=== PATIENT | female | born 1980 | race Two or more races ===

== ENCOUNTER 2019-05-16 08:57 | Emergency (ER) | payer SELFPAY ==
[~2019-05-16] VITALS: Ht 160 cm; Wt 74.4 kg
--- NOTE | 2019-05-16 10:13 | PHYS DOC ---
Past Medical History Past Medical History: No Pertinent History Past Surgical History: Cholecystectomy Alcohol Use: None Drug Use: None Adult General Chief Complaint Chief Complaint: ABDOMINAL PAIN HPI HPI Patient is 38-year-old male who presents to the emergency department for evaluation. She states that this morning she developed some generalized abdominal pain, described as a crampy, burning pain in the center of her abdomen. She has had some nausea but no vomiting. She denies any diarrhea. She declines need for pain medication at this time. She had a similar episode of pain about a week ago, which resolved after throwing up and having a bowel movement. She has not had any bloody emesis or stools. She denies any chest pain or shortness of breath, dizziness or lightheadedness. She has had a cholecystectomy. There are no alleviating or exacerbating factors to the patient's symptoms, except as noted above. Review of Systems Review of Systems Constitutional: Denies fever or chills [] Eyes: Denies change in visual acuity, redness, or eye pain [] HENT: Denies nasal congestion or sore throat [] Respiratory: Denies cough or shortness of breath [] Cardiovascular: The patient denies any shortness of breath, chest pain, palpitations, or orthopnea [] GI: No additional information not addressed in HPI [] : Denies dysuria or hematuria. Denies pelvic pain or vaginal discharge. LMP was just under one month ago. [] Musculoskeletal: Denies back pain or joint pain [] Integument: Denies rash or skin lesions [] Neurologic: Denies headache, focal weakness or sensory changes [] Endocrine: Denies polyuria or polydipsia [] All other systems were reviewed and found to be within normal limits, except as documented in this note. Current Medications Current Medications Current Medications Medications (Trade) Dose Ordered Sig/Crystal Start Time Stop Time Status Last Admin Dose Admin Info (CONTRAST GIVEN -- Rx MONITORING) 1 each PRN DAILY PRN 05/16/19 10:45 05/18/19 10:44 Iohexol (Omnipaque 300 Mg/ml) 75 ml 1X ONCE 05/16/19 10:45 05/16/19 10:46 DC 05/16/19 10:47 75 ML Sodium Chloride 1,000 ml @ 1,000 mls/hr Q1H 05/16/19 10:30 05/16/19 11:29 DC 05/16/19 10:14 1,000 MLS/HR Allergies Allergies Allergies Coded Allergies Type Severity Reaction Last Updated Verified No Known Drug Allergies 09/19/14 No Physical Exam Physical Exam PHYSICAL EXAM: CONSTITUTIONAL: Well developed, well nourished HEAD: normocephalic, atraumatic EENT: PERRL, EOMI. Conjunctivae normal color, sclerae non-icteric; moist mucous membranes. NECK: Supple, non-tender; no meningismus. LUNGS: Lungs CTA, breathing even and unlabored. Normal air movement. HEART: Regular rate and rhythm, no murmur CHEST: No deformity; non-tender ABDOMEN: The abdomen is soft, There is very mild diffuse tenderness to palpation of the abdomen, most prominent tenderness to palpation in the right lower quadrant, without rebound or guarding, no masses or bruits. Normal bowel sounds are present. EXTREM: Normal ROM; no deformity, no calf tenderness. Normal pulses palpable in all extremities. There is no pedal edema. SKIN: No rash; no diaphoresis NEURO: Alert; normal speech and cognition; CN's grossly intact; strength grossly intact without focal deficit. BACK: No CVA TTP. Current Patient Data Vital Signs Vital Signs Date Time Temp Pulse Resp B/P (MAP) Pulse Ox O2 Delivery O2 Flow Rate FiO2 05/16/19 10:20 74 18 110/68 (82) 98 Room Air 05/16/19 09:46 97.2 97.2 Lab Values Laboratory Tests Test 05/16/19 09:53 05/16/19 09:57 05/16/19 10:01 Urine Collection Type Void Urine Color Yellow Urine Clarity Clear Urine pH 5.0 Urine Specific [place] 1.025 Urine Protein Negative mg/dL (NEG-TRACE) Urine Glucose (UA) Negative mg/dL (NEG) Urine Ketones (Stick) Negative mg/dL (NEG) Urine Blood Trace (NEG) Urine Nitrite Negative (NEG) Urine Bilirubin Negative (NEG) Urine Urobilinogen Dipstick 0.2 mg/dL (0.2 mg/dL) Urine Leukocyte Esterase Small (NEG) Urine RBC 6-10 /HPF (0-2) Urine WBC 5-10 /HPF (0-4) Urine Squamous Epithelial Cells Few /LPF Urine Bacteria Few /HPF (0-FEW) POC Urine HCG, Qualitative Hcg negative (Negative) White Blood Count 13.2 x10^3/uL (4.0-11.0) H Red Blood Count 4.62 x10^6/uL (3.50-5.40) Hemoglobin 14.1 g/dL (12.0-15.5) Hematocrit 41.2 % (36.0-47.0) Mean Corpuscular Volume 89 fL (79-100) Mean Corpuscular Hemoglobin 31 pg (25-35) Mean Corpuscular Hemoglobin Concent 34 g/dL (31-37) Red Cell Distribution Width 12.8 % (11.5-14.5) Platelet Count 353 x10^3/uL (140-400) Neutrophils (%) (Auto) 86 % (31-73) H Lymphocytes (%) (Auto) 8 % (24-48) L Monocytes (%) (Auto) 4 % (0-9) Eosinophils (%) (Auto) 1 % (0-3) Basophils (%) (Auto) 0 % (0-3) Neutrophils # (Auto) 11.4 x10^3/uL (1.8-7.7) H Lymphocytes # (Auto) 1.1 x10^3/uL (1.0-4.8) Monocytes # (Auto) 0.5 x10^3/uL (0.0-1.1) Eosinophils # (Auto) 0.1 x10^3/uL (0.0-0.7) Basophils # (Auto) 0.0 x10^3/uL (0.0-0.2) Segmented Neutrophils % 85 % (35-66) H Band Neutrophils % 4 % (0-9) Lymphocytes % 8 % (24-48) L Monocytes % 3 % (0-10) Platelet Estimate Adequate (ADEQUATE) Sodium Level 138 mmol/L (136-145) Potassium Level 3.8 mmol/L (3.5-5.1) Chloride Level 104 mmol/L (98-107) Carbon Dioxide Level 23 mmol/L (21-32) Anion Gap 11 (6-14) Blood Urea Nitrogen 11 mg/dL (7-20) Creatinine 0.8 mg/dL (0.6-1.0) Estimated GFR (Cockcroft-Gault) 80.7 BUN/Creatinine Ratio 14 (6-20) Glucose Level 108 mg/dL (70-99) H Calcium Level 8.5 mg/dL (8.5-10.1) Total Bilirubin 0.3 mg/dL (0.2-1.0) Aspartate Amino Transferase (AST) 56 U/L (15-37) H Alanine Aminotransferase (ALT) 52 U/L (14-59) Alkaline Phosphatase 142 U/L (46-116) H Total Protein 8.0 g/dL (6.4-8.2) Albumin 3.6 g/dL (3.4-5.0) Albumin/Globulin Ratio 0.8 (1.0-1.7) L Lipase 286 U/L (73-393) Laboratory Tests 05/16/19 10:01 Laboratory Tests 05/16/19 10:01 EKG EKG [] Radiology/Procedures Radiology/Procedures PROCEDURE: CT ABD PELV W/ IV CONTRST ONLY Examination: CT of the abdomen pelvis with IV contrast HISTORY: History of abdominal pain, nausea COMPARISON: None available TECHNIQUE: Axial CT images of the abdomen pelvis were performed with IV contrast. Coronal and sagittal reformats are performed Exposure: One or more of the following individualized dose reduction techniques were utilized for this examination: 1. Automated exposure control 2. Adjustment of the mA and/or kV according to patient size 3. Use of iterative reconstruction technique FINDINGS: Minimal bibasilar lung atelectasis. No evidence of free air identified in the abdomen. The liver, spleen, adrenals grossly appears unremarkable. Cholecystectomy clips identified. The stomach is mildly distended. Faint questionable fat stranding identified about the head of the pancreas probably motion artifact and less likely pancreatitis. The small bowel demonstrates minimal fluid distended bowel loops in the mid abdomen. The visualized appendix grossly appears unremarkable. Feces and gas noted in the colon. Urinary bladder is mildly distended. Punctate 1 mm calculus right kidney. No evidence of hydronephrosis. Small fat-containing umbilical hernia. No evidence of lytic bony destructive lesion. IMPRESSION: 1. Mild fluid distended small bowel loops identified in the mid abdomen, nonspecific could be mild enteritis or partial small bowel obstruction. 2. Minimal fat stranding identified about the pancreas probably due to motion artifact and less likely pancreatitis. Correlate with lab values. 3. 1 mm calculus right kidney. [] Course & Med Decision Making Course & Med Decision Making Pertinent Labs and Imaging studies reviewed. (See chart for details) [] 12:20 PM: The patient's condition remains stable. She has been reexamined. She still has some mild diffuse tenderness to palpation. Normal bowel sounds are present, I am not highly suspicious she has a bowel obstruction she has had no vomiting. I discussed test results in detail with the patient, she might have a small UTI will be treated for such. I discussed expectant management, the importance of close GI follow-up, and return precautions in detail. Dragon Disclaimer Dragon Disclaimer This electronic medical record was generated, in whole or in part, using a voice recognition dictation system. Departure Departure Impression: Primary Impression: Abdominal pain Disposition: HOME, SELF-CARE Condition: STABLE Referrals: KEN CHEEMA MD Patient Instructions: Abdominal Pain (Nonspecific) Additional Instructions: Return to medical care for any new or worsening symptoms, development of increasing pain, vomiting, fever, bloody diarrhea, or any other new, or concerning symptoms. It is important that you get further outpatient evaluation. Please call gastroenterology, using the information provided, to schedule outpatient follow- up. Scripts Sulfamethoxazole/Trimethoprim (BACTRIM DS TABLET) 1 Each Tablet 1 TAB PO BID, #6 TAB Prov: JESSIE VILCHIS MD 05/16/19 Ondansetron Hcl (ZOFRAN) 4 Mg Tablet 1 TAB PO Q6HRS PRN for NAUSEA/VOMITING, #20 TAB Prov: JESSIE VILCHIS MD 05/16/19 Dicyclomine Hcl (DICYCLOMINE HCL) 20 Mg Tablet 1 TAB PO QID, #20 TAB Prov: JESSIE VILCHIS MD 05/16/19 JESSIE VILCHIS MD May 16, 2019 10:13
[2019-05-16 10:20] VITALS: BP 110/68
[2019-05-16 10:22] LABS: BASO % 0 % (0-3); EOS # 0.1 x10^3/uL (0.0-0.7); EOS % 1 % (0-3); HEMATOCRIT 41.2 % (36.0-47.0); HEMOGLOBIN 14.1 g/dL (12.0-15.5); LYMPH # 1.1 x10^3/uL (1.0-4.8); LYMPH % 8 % (24-48); MEAN CORPUSCULAR HEMOGLOBIN 31 pg (25-35); MEAN CORPUSCULAR HGB CONC 34 g/dL (31-37); MEAN CORPUSCULAR VOLUME 89 fL (79-100); MONO # 0.5 x10^3/uL (0.0-1.1); MONO % 4 % (0-9); NEUT # 11.4 x10^3/uL (1.8-7.7); NEUT % 86 % (31-73); PLATELET COUNT 353 x10^3/uL (140-400); RED BLOOD COUNT 4.62 x10^6/uL (3.50-5.40); RED CELL DISTRIBUTION WIDTH 12.8 % (11.5-14.5); WHITE BLOOD COUNT 13.2 x10^3/uL (4.0-11.0)
[2019-05-16 10:25] LABS: BILIRUBIN,URINE NEGATIVE (NEG); CLARITY,URINE CLEAR; COLOR,URINE YELLOW; NITRITE,URINE NEGATIVE (NEG); PROTEIN,URINE NEGATIVE (NEG-TRACE); UROBILINOGEN,URINE 0.2 mg/dL (0.2 mg/dL)
[2019-05-16] MEDS ORDERED: IV NORMAL SALINE 1000ML BAG 1,000 ML IV SCH (10:30)
[2019-05-16 10:35] LABS: CALCIUM 8.5 mg/dL (8.5-10.1); CREATININE 0.8 mg/dL (0.6-1.0); GFR 80.7; POTASSIUM 3.8 mmol/L (3.5-5.1)
[2019-05-16 10:40] LABS: BACTERIA,URINE FEW /HPF (0-FEW)
[2019-05-16 10:41] LABS: SQUAMOUS EPITHELIAL CELL,UR FEW /LPF
[2019-05-16 10:42] LABS: ALBUMIN 3.6 g/dL (3.4-5.0); ALBUMIN/GLOBULIN RATIO 0.8 (1.0-1.7); TOTAL BILIRUBIN 0.3 mg/dL (0.2-1.0)
[2019-05-16] MEDS ORDERED: CONTRAST GIVEN. MC PRN (10:45)
[2019-05-16] MEDS ORDERED: IOHEXOL 300 MG/ML 100ML VIAL. IV ONE (10:45)
[2019-05-16 11:05] LABS: % BANDS 4 % (0-9); % LYMPHS 8 % (24-48); % MONOS 3 % (0-10); % SEGS 85 % (35-66); PLT ESTIMATE ADEQUATE (ADEQUATE)
--- NOTE | 2019-05-16 11:29 | RAD ---
Examination: CT of the abdomen pelvis with IV contrast HISTORY: History of abdominal pain, nausea COMPARISON: None available TECHNIQUE: Axial CT images of the abdomen pelvis were performed with IV contrast. Coronal and sagittal reformats are performed Exposure: One or more of the following individualized dose reduction techniques were utilized for this examination: 1. Automated exposure control 2. Adjustment of the mA and/or kV according to patient size 3. Use of iterative reconstruction technique FINDINGS: Minimal bibasilar lung atelectasis. No evidence of free air identified in the abdomen. The liver, spleen, adrenals grossly appears unremarkable. Cholecystectomy clips identified. The stomach is mildly distended. Faint questionable fat stranding identified about the head of the pancreas probably motion artifact and less likely pancreatitis. The small bowel demonstrates minimal fluid distended bowel loops in the mid abdomen. The visualized appendix grossly appears unremarkable. Feces and gas noted in the colon. Urinary bladder is mildly distended. Punctate 1 mm calculus right kidney. No evidence of hydronephrosis. Small fat-containing umbilical hernia. No evidence of lytic bony destructive lesion. IMPRESSION: 1. Mild fluid distended small bowel loops identified in the mid abdomen, nonspecific could be mild enteritis or partial small bowel obstruction. 2. Minimal fat stranding identified about the pancreas probably due to motion artifact and less likely pancreatitis. Correlate with lab values. 3. 1 mm calculus right kidney. Electronically signed by: Jamison Hernandez MD (05/16/2019 11:26 AM) [id number]
[2019-05-16] MEDS ORDERED: ONDA4TAB7 PO (12:26)
[2019-05-16] MEDS ORDERED: DICY20TA3 PO (12:26)
[2019-05-16] MEDS ORDERED: SULF1TAB24 PO (12:26)
== END 2019-05-16 12:51 | disposition home or self-care (01) ==
LOC: ER 08:57
DX: R10.84 Generalized abdominal pain (principal); R11.0 Nausea; Z90.49 Acquired absence of other specified parts of digestive tract
CPT/HCPCS: 36415; 74177; 80053; 81001; 81025; 83690; 85007; 85025; 87086; 96360; 99285; J7030; Q9967

== ENCOUNTER 2019-05-16 16:04 | Observation (INO) | payer SELFPAY ==
[~2019-05-16] VITALS: Ht 160 cm; Wt 74.4 kg
[~2019-05-16 16:04] MED LIST: DICY20TA3 PO; ONDA4TAB7 PO; SULF1TAB24 PO
[2019-05-16] MEDS ORDERED: MORPHINE SULFATE 4 MG/ML VIAL. IV ONE (16:30)
[2019-05-16] MEDS ORDERED: FAMOTIDINE 20 MG/2 ML VIAL IVP ONE (16:30)
[2019-05-16] MEDS ORDERED: ONDANSETRON PF 4 MG/2 ML VIAL. IVP ONE (16:30)
[2019-05-16] MEDS ORDERED: DICYCLOMINE 20 MG/2 ML AMPUL. IM ONE (16:30)
[2019-05-16] MEDS ORDERED: LIDO:MAALOX 1:1 20 ML SINGLE DOSE. SWSW ONE (16:30)
[2019-05-16 16:39] LABS: BASO % 0 % (0-3); EOS # 0.1 x10^3/uL (0.0-0.7); EOS % 1 % (0-3); HEMATOCRIT 41.2 % (36.0-47.0); HEMOGLOBIN 14.1 g/dL (12.0-15.5); LYMPH # 1.8 x10^3/uL (1.0-4.8); LYMPH % 16 % (24-48); MEAN CORPUSCULAR HEMOGLOBIN 30 pg (25-35); MEAN CORPUSCULAR HGB CONC 34 g/dL (31-37); MEAN CORPUSCULAR VOLUME 88 fL (79-100); MONO # 0.5 x10^3/uL (0.0-1.1); MONO % 5 % (0-9); NEUT % 79 % (31-73); PLATELET COUNT 335 x10^3/uL (140-400); RED BLOOD COUNT 4.67 x10^6/uL (3.50-5.40); WHITE BLOOD COUNT 11.5 x10^3/uL (4.0-11.0)
[2019-05-16 16:42] LABS: CREATININE 0.7 mg/dL (0.6-1.0); GFR 94.2; POTASSIUM 3.6 mmol/L (3.5-5.1)
--- NOTE | 2019-05-16 16:42 | PHYS DOC ---
Past Medical History Past Medical History: No Pertinent History Past Surgical History: Cholecystectomy Alcohol Use: None Drug Use: None Adult General Chief Complaint Chief Complaint: ABDOMINAL PAIN HPI HPI Patient is a 38-year-old female, who I saw earlier in the day, secondary to abdominal pain, which has resolved by the time she left the emergency but. Labs, urine, and imaging tests have been performed and were reviewed, as was her note. The patient returned home, had recurrence of her abdominal pain and vomited once, her emesis was mostly clear liquid according to her . She has not had any fevers. She presents to the emergency department for further evaluation, double over in pain. The pain is mostly in her central and upper abdomen. There are no alleviating or exacerbating factors to her symptoms otherwise. Review of Systems Review of Systems Constitutional: Denies fever or chills [] Eyes: Denies change in visual acuity, redness, or eye pain [] HENT: Denies nasal congestion or sore throat [] Respiratory: Denies cough or shortness of breath [] Cardiovascular:The patient denies any shortness of breath, chest pain, palpitations, or orthopnea[] GI: No additional information not addressed in HPI [] : Denies dysuria or hematuria [] Musculoskeletal: Denies back pain or joint pain [] Integument: Denies rash or skin lesions [] Neurologic: Denies headache, focal weakness or sensory changes [] Endocrine: Denies polyuria or polydipsia [] All other systems were reviewed and found to be within normal limits, except as documented in this note. Current Medications Current Medications Current Medications Medications (Trade) Dose Ordered Sig/Crystal Start Time Stop Time Status Last Admin Dose Admin Dicyclomine HCl (Bentyl) 20 mg 1X ONCE 05/16/19 16:30 05/16/19 16:31 DC 05/16/19 16:37 20 MG Famotidine (Pepcid Vial) 20 mg 1X ONCE 05/16/19 16:30 05/16/19 16:31 DC 05/16/19 16:36 20 MG Morphine Sulfate (Morphine Sulfate) 4 mg 1X ONCE 05/16/19 16:30 05/16/19 16:31 DC 05/16/19 16:36 4 MG Multi-Ingredient Mouthwash/Gargle (Gi Cocktail) 20 ml 1X ONCE 11/4/19 16:30 05/16/19 16:31 DC 05/16/19 16:36 20 ML Ondansetron HCl (Zofran) 4 mg 1X ONCE 05/16/19 16:30 05/16/19 16:31 DC 05/16/19 16:36 4 MG Allergies Allergies Allergies Coded Allergies Type Severity Reaction Last Updated Verified No Known Drug Allergies 09/19/14 No Physical Exam Physical Exam PHYSICAL EXAM: CONSTITUTIONAL: Well developed, well nourished HEAD: normocephalic, atraumatic EENT: PERRL, EOMI. Conjunctivae normal color, sclerae non-icteric; moist mucous membranes. NECK: Supple, non-tender; no meningismus. LUNGS: Lungs CTA, breathing even and unlabored. Normal air movement. HEART: Regular rate and rhythm, no murmur CHEST: No deformity; non-tender ABDOMEN: The abdomen is soft, there is mild diffuse tenderness to palpation in the epigastric abdomen, the remainder the abdomen is relatively soft and non- tender, no masses or bruits. Normal bowel sounds are present. EXTREM: Normal ROM; no deformity, no calf tenderness. Normal pulses palpable in all extremities. There is no pedal edema. SKIN: No rash; no diaphoresis NEURO: Alert; normal speech and cognition; CN's grossly intact; strength grossly intact without focal deficit. BACK: No CVA TTP. PSYCHIATRIC: The patient exhibits a moderately anxious affect, related to her pain. Current Patient Data Vital Signs Vital Signs Date Time Temp Pulse Resp B/P (MAP) Pulse Ox O2 Delivery O2 Flow Rate FiO2 05/16/19 16:36 20 100 Room Air 05/16/19 16:13 98.4 83 148/74 (98) 98.4 Lab Values Laboratory Tests Test 05/16/19 16:20 White Blood Count 11.5 x10^3/uL (4.0-11.0) H Red Blood Count 4.67 x10^6/uL (3.50-5.40) Hemoglobin 14.1 g/dL (12.0-15.5) Hematocrit 41.2 % (36.0-47.0) Mean Corpuscular Volume 88 fL (79-100) Mean Corpuscular Hemoglobin 30 pg (25-35) Mean Corpuscular Hemoglobin Concent 34 g/dL (31-37) Red Cell Distribution Width 13.0 % (11.5-14.5) Platelet Count 335 x10^3/uL (140-400) Neutrophils (%) (Auto) 79 % (31-73) H Lymphocytes (%) (Auto) 16 % (24-48) L Monocytes (%) (Auto) 5 % (0-9) Eosinophils (%) (Auto) 1 % (0-3) Basophils (%) (Auto) 0 % (0-3) Neutrophils # (Auto) 9.0 x10^3/uL (1.8-7.7) H Lymphocytes # (Auto) 1.8 x10^3/uL (1.0-4.8) Monocytes # (Auto) 0.5 x10^3/uL (0.0-1.1) Eosinophils # (Auto) 0.1 x10^3/uL (0.0-0.7) Basophils # (Auto) 0.0 x10^3/uL (0.0-0.2) Sodium Level 141 mmol/L (136-145) Potassium Level 3.6 mmol/L (3.5-5.1) Chloride Level 105 mmol/L (98-107) Carbon Dioxide Level 24 mmol/L (21-32) Anion Gap 12 (6-14) Blood Urea Nitrogen 8 mg/dL (7-20) Creatinine 0.7 mg/dL (0.6-1.0) Estimated GFR (Cockcroft-Gault) 94.2 BUN/Creatinine Ratio 11 (6-20) Glucose Level 117 mg/dL (70-99) H Calcium Level 9.0 mg/dL (8.5-10.1) Total Bilirubin 0.5 mg/dL (0.2-1.0) Aspartate Amino Transferase (AST) 76 U/L (15-37) H Alanine Aminotransferase (ALT) 69 U/L (14-59) H Alkaline Phosphatase 161 U/L (46-116) H Total Protein 8.5 g/dL (6.4-8.2) H Albumin 3.8 g/dL (3.4-5.0) Albumin/Globulin Ratio 0.8 (1.0-1.7) L Lipase 245 U/L (73-393) Laboratory Tests 05/16/19 16:20 Laboratory Tests 05/16/19 16:20 EKG EKG [] Radiology/Procedures Radiology/Procedures [] Course & Med Decision Making Course & Med Decision Making Pertinent Labs and Imaging studies reviewed. (See chart for details) [] 4:40 PM: Patient condition remains stable. She'll be given IV fluids, medication to manage her symptoms. The exact etiology of her symptoms is unclear, although cramping related to an enteritis is considered a possibility, as is gastritis. Due to the severe recurrence of her pain, labs will be rechecked, she'll be admitted to the hospital under the care of Dr. saini, who graciously accepted her for further evaluation and monitoring. LFTs are noted to be somewhat elevated, of uncertain etiology. Bilirubin is normal. Biliary obstruction is not highly suspected, but further monitoring and repeat lab values should guide further imaging at this time. I do not think repeat CT scanner even ultrasound at this point is emergently warranted. Dragon Disclaimer Dragon Disclaimer This electronic medical record was generated, in whole or in part, using a voice recognition dictation system. Departure Departure Impression: Primary Impression: Abdominal pain Disposition: ADMITTED INPATIENT Admitting Physician: EARNEST Condition: STABLE Referrals: NO PCP (PCP) JESSIE VILCHIS MD May 16, 2019 16:42
[2019-05-16 16:48] LABS: ALBUMIN 3.8 g/dL (3.4-5.0); ALBUMIN/GLOBULIN RATIO 0.8 (1.0-1.7); TOTAL BILIRUBIN 0.5 mg/dL (0.2-1.0); TOTAL PROTEIN 8.5 g/dL (6.4-8.2)
[2019-05-16 17:35] LABS: BARBITURATES NEG (NEG); BENZODIAZEPINES NEG (NEG); CANNABINOIDS NEG (NEG); COCAINE NEG (NEG); METHADONE NEG (NEG); OPIATES POS (NEG); PHENCYCLIDINE NEG (NEG)
[2019-05-16 17:37] LABS: AMPHETAMINE/METHAMPHETAMINE NEG (NEG)
[2019-05-16 19:00] VITALS: BP 108/67
[2019-05-16] MEDS ORDERED: ONDANSETRON PF 4 MG/2 ML VIAL. IVP PRN (19:15)
[2019-05-16] MEDS: IV NORMAL SALINE 1000ML BAG 1,000 ML IV SCH (19:28)
[2019-05-16] MEDS ORDERED: diphenhydrAMINE HCL 25 MG CAPSULE PO PRN (21:30)
[2019-05-16] MEDS ORDERED: MORPHINE SULFATE 4 MG/ML VIAL. IV PRN (21:30)
--- NOTE | 2019-05-16 21:33 | PDOC1 ---
History and Physical Date of Admission Date of Admission DATE: 05/16/19 TIME: 21:28 History of Present Illness History of Present Illness Ms. Simeon, is a 38-year-old female, admit from ER for abd pain, nausea, with vomiting. she had been to the ER twice today, symptoms had imrpovd with emds, but then had worsened again. she has been unable to eat, but now again feels better and would like to try sprite. earlier, her emesis was mostly clear liquid according to her . NO fevers. pain was 9/10, she was unable to stand upright due to pain Past Medical History Cardiovascular: No pertinent hx Pulmonary: No pertinent hx GI: No pertinent hx Heme/Onc: No pertinent hx Family History Family History: Diabetes Social History Smoke: No ALCOHOL: none Drugs: None Current Problem List Problem List Problems Medical Problems: (1) Abdominal pain Status: Acute Current Medications Current Medications Current Medications Morphine Sulfate (Morphine Sulfate) 4 mg 1X ONCE IV Last administered on 05/16/19at 16:36; Start 05/16/19 at 16:30; Stop 05/16/19 at 16:31; Status DC Dicyclomine HCl (Bentyl) 20 mg 1X ONCE IM Last administered on 05/16/19at 16:37; Start 05/16/19 at 16:30; Stop 05/16/19 at 16:31; Status DC Famotidine (Pepcid Vial) 20 mg 1X ONCE IVP Last administered on 05/16/19at 16:36; Start 05/16/19 at 16:30; Stop 05/16/19 at 16:31; Status DC Multi-Ingredient Mouthwash/Gargle (Gi Cocktail) 20 ml 1X ONCE SWSW Last administered on 05/16/19at 16:36; Start 05/16/19 at 16:30; Stop 05/16/19 at 16:31; Status DC Ondansetron HCl (Zofran) 4 mg 1X ONCE IVP Last administered on 05/16/19at 16:36; Start 05/16/19 at 16:30; Stop 05/16/19 at 16:31; Status DC Sodium Chloride 1,000 ml @ 100 mls/hr Q10H IV Last administered on 05/16/19at 19:28; Start 05/16/19 at 19:15 Ondansetron HCl (Zofran) 8 mg PRN Q8HRS PRN IVP NAUSEA/VOMITING; Start 05/16/19 at 19:15 Active Scripts Active Bactrim Ds Tablet (Sulfamethoxazole/Trimethoprim) 1 Each Tablet 1 Tab PO BID Zofran (Ondansetron Hcl) 4 Mg Tablet 1 Tab PO Q6HRS PRN Dicyclomine Hcl 20 Mg Tablet 1 Tab PO QID Allergies Allergies: Coded Allergies: No Known Drug Allergies (Unverified , 09/19/14) ROS General: YES: Fatigue, Appetite; No: Chills, Night Sweats, Malaise, Other PSYCHOLOGICAL ROS: YES: Sleep disturbances; No: Anxiety, Behavioral Disorder, Concentration difficultie, Decreased libido, Depression, Disorientation, Hallucinations, Hostility, Irritablity, Memory difficulties, Mood Swings, Obsessive thoughts, Other Eyes: No Blurry vision, No Decreased vision, No Double vision, No Dry eyes, No Excessive tearing, No Eye Pain, No Itchy Eyes, No Loss of vision, No P hotophobia, No Scotomata, No Uses contacts, No Uses glasses, No Other HEENT: No: Heacaches, Visual Changes, Hearing change, Nasal congestion, Nasal discharge, Oral lesions, Sinus pain, Sore Throat, Epistaxis, Sneezing, Snoring, Tinnitus, Vertigo, Vocal changes, Other Respiratory: No: Cough, Hemoptysis, Orthopnea, Pleuritic Pain, Shortness of breath, SOB with excertion, Sputum Changes, Stridor, Tachypnea, Wheezing, Other Cardiovascular: No Chest Pain, No Palpitations, No Orthopnea, No Paroxysmal Noc. Dyspnea, No Edema, No Lt Headedness, No Other Gastrointestinal: Yes Nausea, Yes Abdominal Pain Musculoskeletal: No Gait Disturbance, No Joint Pain, No Joint Stiffness, No Joint Swelling, No Muscle Pain, No Muscular Weakness, No Pain In:, No Swelling In:, No Other Neurological: No Behavorial Changes, No Bowel/Bladder ControlChng, No Confusion, No Dizziness, No Gait Disturbance, No Headaches, No Impaired Coord/balance, No Memory Loss, No Numbness/Tingling, No Seizures, No Speech Problems, No Tremors, No Visual Changes, No Weakness, No Other Skin: No Dry Skin, No Eczema, No Hair Changes, No Lumps, No Mole Changes, No Mottling, No Nail Changes, No Pruritus, No Rash, No Skin Lesion Changes, No Other, No Acne Physical Exam General: Alert, Oriented X3 HEENT: Atraumatic, PERRLA Lungs: Clear to auscultation Abdomen: Soft (tender, sounds normla) Extremities: Normal pulses Skin: No rashes, No significant lesion Neuro: Normal tone, Cranial nerves 3-12 NL Psych/Mental Status: Mood NL Vitals Vitals Vital Signs Date Time Temp Pulse Resp B/P (MAP) Pulse Ox O2 Delivery O2 Flow Rate FiO2 05/16/19 19:43 Room Air 05/16/19 17:11 70 18 113/65 (81) 100 05/16/19 16:13 98.4 98.4 Labs Labs Laboratory Tests Test 05/16/19 16:20 05/16/19 17:00 White Blood Count 11.5 x10^3/uL (4.0-11.0) Red Blood Count 4.67 x10^6/uL (3.50-5.40) Hemoglobin 14.1 g/dL (12.0-15.5) Hematocrit 41.2 % (36.0-47.0) Mean Corpuscular Volume 88 fL (79-100) Mean Corpuscular Hemoglobin 30 pg (25-35) Mean Corpuscular Hemoglobin Concent 34 g/dL (31-37) Red Cell Distribution Width 13.0 % (11.5-14.5) Platelet Count 335 x10^3/uL (140-400) Neutrophils (%) (Auto) 79 % (31-73) Lymphocytes (%) (Auto) 16 % (24-48) Monocytes (%) (Auto) 5 % (0-9) Eosinophils (%) (Auto) 1 % (0-3) Basophils (%) (Auto) 0 % (0-3) Neutrophils # (Auto) 9.0 x10^3/uL (1.8-7.7) Lymphocytes # (Auto) 1.8 x10^3/uL (1.0-4.8) Monocytes # (Auto) 0.5 x10^3/uL (0.0-1.1) Eosinophils # (Auto) 0.1 x10^3/uL (0.0-0.7) Basophils # (Auto) 0.0 x10^3/uL (0.0-0.2) Sodium Level 141 mmol/L (136-145) Potassium Level 3.6 mmol/L (3.5-5.1) Chloride Level 105 mmol/L (98-107) Carbon Dioxide Level 24 mmol/L (21-32) Anion Gap 12 (6-14) Blood Urea Nitrogen 8 mg/dL (7-20) Creatinine 0.7 mg/dL (0.6-1.0) Estimated GFR (Cockcroft-Gault) 94.2 BUN/Creatinine Ratio 11 (6-20) Glucose Level 117 mg/dL (70-99) Calcium Level 9.0 mg/dL (8.5-10.1) Total Bilirubin 0.5 mg/dL (0.2-1.0) Aspartate Amino Transf (AST/SGOT) 76 U/L (15-37) Alanine Aminotransferase (ALT/SGPT) 69 U/L (14-59) Alkaline Phosphatase 161 U/L (46-116) Total Protein 8.5 g/dL (6.4-8.2) Albumin 3.8 g/dL (3.4-5.0) Albumin/Globulin Ratio 0.8 (1.0-1.7) Lipase 245 U/L (73-393) Urine Opiates Screen Pos (NEG) Urine Methadone Screen Neg (NEG) Urine Barbiturates Neg (NEG) Urine Phencyclidine Screen Neg (NEG) Urine Amphetamine/Methamphetamine Neg (NEG) Urine Benzodiazepines Screen Neg (NEG) Urine Cocaine Screen Neg (NEG) Urine Cannabinoids Screen Neg (NEG) Urine Ethyl Alcohol Neg (NEG) Laboratory Tests Test 05/16/19 16:20 05/16/19 17:00 White Blood Count 11.5 x10^3/uL (4.0-11.0) Red Blood Count 4.67 x10^6/uL (3.50-5.40) Hemoglobin 14.1 g/dL (12.0-15.5) Hematocrit 41.2 % (36.0-47.0) Mean Corpuscular Volume 88 fL (79-100) Mean Corpuscular Hemoglobin 30 pg (25-35) Mean Corpuscular Hemoglobin Concent 34 g/dL (31-37) Red Cell Distribution Width 13.0 % (11.5-14.5) Platelet Count 335 x10^3/uL (140-400) Neutrophils (%) (Auto) 79 % (31-73) Lymphocytes (%) (Auto) 16 % (24-48) Monocytes (%) (Auto) 5 % (0-9) Eosinophils (%) (Auto) 1 % (0-3) Basophils (%) (Auto) 0 % (0-3) Neutrophils # (Auto) 9.0 x10^3/uL (1.8-7.7) Lymphocytes # (Auto) 1.8 x10^3/uL (1.0-4.8) Monocytes # (Auto) 0.5 x10^3/uL (0.0-1.1) Eosinophils # (Auto) 0.1 x10^3/uL (0.0-0.7) Basophils # (Auto) 0.0 x10^3/uL (0.0-0.2) Sodium Level 141 mmol/L (136-145) Potassium Level 3.6 mmol/L (3.5-5.1) Chloride Level 105 mmol/L (98-107) Carbon Dioxide Level 24 mmol/L (21-32) Anion Gap 12 (6-14) Blood Urea Nitrogen 8 mg/dL (7-20) Creatinine 0.7 mg/dL (0.6-1.0) Estimated GFR (Cockcroft-Gault) 94.2 BUN/Creatinine Ratio 11 (6-20) Glucose Level 117 mg/dL (70-99) Calcium Level 9.0 mg/dL (8.5-10.1) Total Bilirubin 0.5 mg/dL (0.2-1.0) Aspartate Amino Transf (AST/SGOT) 76 U/L (15-37) Alanine Aminotransferase (ALT/SGPT) 69 U/L (14-59) Alkaline Phosphatase 161 U/L (46-116) Total Protein 8.5 g/dL (6.4-8.2) Albumin 3.8 g/dL (3.4-5.0) Albumin/Globulin Ratio 0.8 (1.0-1.7) Lipase 245 U/L (73-393) Urine Opiates Screen Pos (NEG) Urine Methadone Screen Neg (NEG) Urine Barbiturates Neg (NEG) Urine Phencyclidine Screen Neg (NEG) Urine Amphetamine/Methamphetamine Neg (NEG) Urine Benzodiazepines Screen Neg (NEG) Urine Cocaine Screen Neg (NEG) Urine Cannabinoids Screen Neg (NEG) Urine Ethyl Alcohol Neg (NEG) VTE Prophylaxis Ordered VTE Prophylaxis Devices: No VTE Pharmacological Prophylaxi: No Assessment/Plan Assessment/Plan acute abd pain with nausea viral enteritis admit symptom control, clear liquids, DC when able to advance diet DAYNE SOFIA MD May 16, 2019 21:33
[2019-05-16 23:00] VITALS: BP 112/69
[2019-05-17 03:00] VITALS: BP 112/76
[2019-05-17] MEDS: IV NORMAL SALINE 1000ML BAG 1,000 ML IV SCH ×2 (04:55→14:38)
[2019-05-17 06:34] LABS: BASO % 0 % (0-3); EOS # 0.3 x10^3/uL (0.0-0.7); EOS % 4 % (0-3); HEMATOCRIT 37.5 % (36.0-47.0); HEMOGLOBIN 12.9 g/dL (12.0-15.5); LYMPH # 1.9 x10^3/uL (1.0-4.8); LYMPH % 26 % (24-48); MEAN CORPUSCULAR HEMOGLOBIN 31 pg (25-35); MEAN CORPUSCULAR HGB CONC 34 g/dL (31-37); MEAN CORPUSCULAR VOLUME 90 fL (79-100); MONO # 0.5 x10^3/uL (0.0-1.1); MONO % 7 % (0-9); NEUT # 4.5 x10^3/uL (1.8-7.7); NEUT % 63 % (31-73); PLATELET COUNT 302 x10^3/uL (140-400); RED BLOOD COUNT 4.19 x10^6/uL (3.50-5.40); RED CELL DISTRIBUTION WIDTH 13.3 % (11.5-14.5); WHITE BLOOD COUNT 7.2 x10^3/uL (4.0-11.0)
[2019-05-17 06:55] LABS: ALBUMIN/GLOBULIN RATIO 0.7 (1.0-1.7); CALCIUM 8.1 mg/dL (8.5-10.1); CREATININE 0.8 mg/dL (0.6-1.0); GFR 80.7; POTASSIUM 3.8 mmol/L (3.5-5.1); TOTAL BILIRUBIN 0.4 mg/dL (0.2-1.0); TOTAL PROTEIN 7.1 g/dL (6.4-8.2)
[2019-05-17 07:00] VITALS: BP 108/57
[2019-05-17] MEDS ORDERED: LIDO:MAALOX 1:1 20 ML SINGLE DOSE. PO PRN (08:45)
[2019-05-17] MEDS ORDERED: oxyCODONE/APAP 5/325 1 TAB TABLET PO PRN (08:45)
[2019-05-17] MEDS ORDERED: PROCHLORPERAZINE 10 MG/2 ML VIAL. IV PRN (08:45)
[2019-05-17] MEDS ORDERED: LOPERAMIDE 2 MG CAPSULE PO PRN (08:45)
[2019-05-17] MEDS ORDERED: NON FORMULARY ITEM (Dicyclomine Hcl 1 TAB) PO SCH (09:00)
[2019-05-17 11:00] VITALS: BP 103/69
--- NOTE | 2019-05-17 11:38 | PDOC ---
PROGRESS NOTES Chief Complaint Chief Complaint AGE vs partial SBO TRAnsaminitis mild History of Present Illness History of Present Illness STill some abd pain NO emesis though ATe only liquid diet as what was ordered Was sick x 7 days, 2 er visits: dcd on PO zofran, bentyl and bactrim with no improvement as relayed by to me at bedside PT is a housewife, minimal slovenian, denies sick contacts with toddlers with AGE sxs LEukocytosis resolved with PO flagyl, i added IV cipro PLAN: COnsult GI - i attempted to discuss dc, she looked uncomfortable re the idea LFts are elliot elevated LIquid diet for now till GI sees I provided copy of the CT to I added supportive gI meds Vitals Vitals Vital Signs Date Time Temp Pulse Resp B/P (MAP) Pulse Ox O2 Delivery O2 Flow Rate FiO2 05/17/19 11:00 97.7 72 16 103/69 (80) 98 Room Air 97.7 Physical Exam General: Alert, Oriented X3 Abdomen: Soft (tender, sounds normla) Extremities: Normal pulses Skin: No rashes, No significant lesion Labs LABS Laboratory Tests Test 05/16/19 16:20 05/16/19 17:00 05/17/19 05:30 White Blood Count 11.5 x10^3/uL (4.0-11.0) 7.2 x10^3/uL (4.0-11.0) Red Blood Count 4.67 x10^6/uL (3.50-5.40) 4.19 x10^6/uL (3.50-5.40) Hemoglobin 14.1 g/dL (12.0-15.5) 12.9 g/dL (12.0-15.5) Hematocrit 41.2 % (36.0-47.0) 37.5 % (36.0-47.0) Mean Corpuscular Volume 88 fL (79-100) 90 fL (79-100) Mean Corpuscular Hemoglobin 30 pg (25-35) 31 pg (25-35) Mean Corpuscular Hemoglobin Concent 34 g/dL (31-37) 34 g/dL (31-37) Red Cell Distribution Width 13.0 % (11.5-14.5) 13.3 % (11.5-14.5) Platelet Count 335 x10^3/uL (140-400) 302 x10^3/uL (140-400) Neutrophils (%) (Auto) 79 % (31-73) 63 % (31-73) Lymphocytes (%) (Auto) 16 % (24-48) 26 % (24-48) Monocytes (%) (Auto) 5 % (0-9) 7 % (0-9) Eosinophils (%) (Auto) 1 % (0-3) 4 % (0-3) Basophils (%) (Auto) 0 % (0-3) 0 % (0-3) Neutrophils # (Auto) 9.0 x10^3/uL (1.8-7.7) 4.5 x10^3/uL (1.8-7.7) Lymphocytes # (Auto) 1.8 x10^3/uL (1.0-4.8) 1.9 x10^3/uL (1.0-4.8) Monocytes # (Auto) 0.5 x10^3/uL (0.0-1.1) 0.5 x10^3/uL (0.0-1.1) Eosinophils # (Auto) 0.1 x10^3/uL (0.0-0.7) 0.3 x10^3/uL (0.0-0.7) Basophils # (Auto) 0.0 x10^3/uL (0.0-0.2) 0.0 x10^3/uL (0.0-0.2) Sodium Level 141 mmol/L (136-145) 143 mmol/L (136-145) Potassium Level 3.6 mmol/L (3.5-5.1) 3.8 mmol/L (3.5-5.1) Chloride Level 105 mmol/L (98-107) 109 mmol/L (98-107) Carbon Dioxide Level 24 mmol/L (21-32) 26 mmol/L (21-32) Anion Gap 12 (6-14) 8 (6-14) Blood Urea Nitrogen 8 mg/dL (7-20) 7 mg/dL (7-20) Creatinine 0.7 mg/dL (0.6-1.0) 0.8 mg/dL (0.6-1.0) Estimated GFR (Cockcroft-Gault) 94.2 80.7 BUN/Creatinine Ratio 11 (6-20) 9 (6-20) Glucose Level 117 mg/dL (70-99) 91 mg/dL (70-99) Calcium Level 9.0 mg/dL (8.5-10.1) 8.1 mg/dL (8.5-10.1) Total Bilirubin 0.5 mg/dL (0.2-1.0) 0.4 mg/dL (0.2-1.0) Aspartate Amino Transf (AST/SGOT) 76 U/L (15-37) 64 U/L (15-37) Alanine Aminotransferase (ALT/SGPT) 69 U/L (14-59) 86 U/L (14-59) Alkaline Phosphatase 161 U/L (46-116) 143 U/L (46-116) Total Protein 8.5 g/dL (6.4-8.2) 7.1 g/dL (6.4-8.2) Albumin 3.8 g/dL (3.4-5.0) 3.0 g/dL (3.4-5.0) Albumin/Globulin Ratio 0.8 (1.0-1.7) 0.7 (1.0-1.7) Lipase 245 U/L (73-393) Urine Opiates Screen Pos (NEG) Urine Methadone Screen Neg (NEG) Urine Barbiturates Neg (NEG) Urine Phencyclidine Screen Neg (NEG) Urine Amphetamine/Methamphetamine Neg (NEG) Urine Benzodiazepines Screen Neg (NEG) Urine Cocaine Screen Neg (NEG) Urine Cannabinoids Screen Neg (NEG) Urine Ethyl Alcohol Neg (NEG) Review of Systems Review of Systems abd pain, no emesis, no fevers, no diarrhea, no cp, all else 14 pt neg Assessment and Plan Assessmemt and Plan Problems Medical Problems: (1) Abdominal pain Status: Acute (2) Nausea Status: Acute (3) Viral enteritis Status: Acute Comment Review of Relevant I have reviewed the following items victorina (where applicable) has been applied. Labs Laboratory Tests Test 05/16/19 16:20 05/16/19 17:00 05/17/19 05:30 White Blood Count 11.5 x10^3/uL (4.0-11.0) 7.2 x10^3/uL (4.0-11.0) Red Blood Count 4.67 x10^6/uL (3.50-5.40) 4.19 x10^6/uL (3.50-5.40) Hemoglobin 14.1 g/dL (12.0-15.5) 12.9 g/dL (12.0-15.5) Hematocrit 41.2 % (36.0-47.0) 37.5 % (36.0-47.0) Mean Corpuscular Volume 88 fL (79-100) 90 fL (79-100) Mean Corpuscular Hemoglobin 30 pg (25-35) 31 pg (25-35) Mean Corpuscular Hemoglobin Concent 34 g/dL (31-37) 34 g/dL (31-37) Red Cell Distribution Width 13.0 % (11.5-14.5) 13.3 % (11.5-14.5) Platelet Count 335 x10^3/uL (140-400) 302 x10^3/uL (140-400) Neutrophils (%) (Auto) 79 % (31-73) 63 % (31-73) Lymphocytes (%) (Auto) 16 % (24-48) 26 % (24-48) Monocytes (%) (Auto) 5 % (0-9) 7 % (0-9) Eosinophils (%) (Auto) 1 % (0-3) 4 % (0-3) Basophils (%) (Auto) 0 % (0-3) 0 % (0-3) Neutrophils # (Auto) 9.0 x10^3/uL (1.8-7.7) 4.5 x10^3/uL (1.8-7.7) Lymphocytes # (Auto) 1.8 x10^3/uL (1.0-4.8) 1.9 x10^3/uL (1.0-4.8) Monocytes # (Auto) 0.5 x10^3/uL (0.0-1.1) 0.5 x10^3/uL (0.0-1.1) Eosinophils # (Auto) 0.1 x10^3/uL (0.0-0.7) 0.3 x10^3/uL (0.0-0.7) Basophils # (Auto) 0.0 x10^3/uL (0.0-0.2) 0.0 x10^3/uL (0.0-0.2) Sodium Level 141 mmol/L (136-145) 143 mmol/L (136-145) Potassium Level 3.6 mmol/L (3.5-5.1) 3.8 mmol/L (3.5-5.1) Chloride Level 105 mmol/L (98-107) 109 mmol/L (98-107) Carbon Dioxide Level 24 mmol/L (21-32) 26 mmol/L (21-32) Anion Gap 12 (6-14) 8 (6-14) Blood Urea Nitrogen 8 mg/dL (7-20) 7 mg/dL (7-20) Creatinine 0.7 mg/dL (0.6-1.0) 0.8 mg/dL (0.6-1.0) Estimated GFR (Cockcroft-Gault) 94.2 80.7 BUN/Creatinine Ratio 11 (6-20) 9 (6-20) Glucose Level 117 mg/dL (70-99) 91 mg/dL (70-99) Calcium Level 9.0 mg/dL (8.5-10.1) 8.1 mg/dL (8.5-10.1) Total Bilirubin 0.5 mg/dL (0.2-1.0) 0.4 mg/dL (0.2-1.0) Aspartate Amino Transf (AST/SGOT) 76 U/L (15-37) 64 U/L (15-37) Alanine Aminotransferase (ALT/SGPT) 69 U/L (14-59) 86 U/L (14-59) Alkaline Phosphatase 161 U/L (46-116) 143 U/L (46-116) Total Protein 8.5 g/dL (6.4-8.2) 7.1 g/dL (6.4-8.2) Albumin 3.8 g/dL (3.4-5.0) 3.0 g/dL (3.4-5.0) Albumin/Globulin Ratio 0.8 (1.0-1.7) 0.7 (1.0-1.7) Lipase 245 U/L (73-393) Urine Opiates Screen Pos (NEG) Urine Methadone Screen Neg (NEG) Urine Barbiturates Neg (NEG) Urine Phencyclidine Screen Neg (NEG) Urine Amphetamine/Methamphetamine Neg (NEG) Urine Benzodiazepines Screen Neg (NEG) Urine Cocaine Screen Neg (NEG) Urine Cannabinoids Screen Neg (NEG) Urine Ethyl Alcohol Neg (NEG) Laboratory Tests Test 05/16/19 16:20 05/16/19 17:00 05/17/19 05:30 White Blood Count 11.5 x10^3/uL (4.0-11.0) 7.2 x10^3/uL (4.0-11.0) Red Blood Count 4.67 x10^6/uL (3.50-5.40) 4.19 x10^6/uL (3.50-5.40) Hemoglobin 14.1 g/dL (12.0-15.5) 12.9 g/dL (12.0-15.5) Hematocrit 41.2 % (36.0-47.0) 37.5 % (36.0-47.0) Mean Corpuscular Volume 88 fL (79-100) 90 fL (79-100) Mean Corpuscular Hemoglobin 30 pg (25-35) 31 pg (25-35) Mean Corpuscular Hemoglobin Concent 34 g/dL (31-37) 34 g/dL (31-37) Red Cell Distribution Width 13.0 % (11.5-14.5) 13.3 % (11.5-14.5) Platelet Count 335 x10^3/uL (140-400) 302 x10^3/uL (140-400) Neutrophils (%) (Auto) 79 % (31-73) 63 % (31-73) Lymphocytes (%) (Auto) 16 % (24-48) 26 % (24-48) Monocytes (%) (Auto) 5 % (0-9) 7 % (0-9) Eosinophils (%) (Auto) 1 % (0-3) 4 % (0-3) Basophils (%) (Auto) 0 % (0-3) 0 % (0-3) Neutrophils # (Auto) 9.0 x10^3/uL (1.8-7.7) 4.5 x10^3/uL (1.8-7.7) Lymphocytes # (Auto) 1.8 x10^3/uL (1.0-4.8) 1.9 x10^3/uL (1.0-4.8) Monocytes # (Auto) 0.5 x10^3/uL (0.0-1.1) 0.5 x10^3/uL (0.0-1.1) Eosinophils # (Auto) 0.1 x10^3/uL (0.0-0.7) 0.3 x10^3/uL (0.0-0.7) Basophils # (Auto) 0.0 x10^3/uL (0.0-0.2) 0.0 x10^3/uL (0.0-0.2) Sodium Level 141 mmol/L (136-145) 143 mmol/L (136-145) Potassium Level 3.6 mmol/L (3.5-5.1) 3.8 mmol/L (3.5-5.1) Chloride Level 105 mmol/L (98-107) 109 mmol/L (98-107) Carbon Dioxide Level 24 mmol/L (21-32) 26 mmol/L (21-32) Anion Gap 12 (6-14) 8 (6-14) Blood Urea Nitrogen 8 mg/dL (7-20) 7 mg/dL (7-20) Creatinine 0.7 mg/dL (0.6-1.0) 0.8 mg/dL (0.6-1.0) Estimated GFR (Cockcroft-Gault) 94.2 80.7 BUN/Creatinine Ratio 11 (6-20) 9 (6-20) Glucose Level 117 mg/dL (70-99) 91 mg/dL (70-99) Calcium Level 9.0 mg/dL (8.5-10.1) 8.1 mg/dL (8.5-10.1) Total Bilirubin 0.5 mg/dL (0.2-1.0) 0.4 mg/dL (0.2-1.0) Aspartate Amino Transf (AST/SGOT) 76 U/L (15-37) 64 U/L (15-37) Alanine Aminotransferase (ALT/SGPT) 69 U/L (14-59) 86 U/L (14-59) Alkaline Phosphatase 161 U/L (46-116) 143 U/L (46-116) Total Protein 8.5 g/dL (6.4-8.2) 7.1 g/dL (6.4-8.2) Albumin 3.8 g/dL (3.4-5.0) 3.0 g/dL (3.4-5.0) Albumin/Globulin Ratio 0.8 (1.0-1.7) 0.7 (1.0-1.7) Lipase 245 U/L (73-393) Urine Opiates Screen Pos (NEG) Urine Methadone Screen Neg (NEG) Urine Barbiturates Neg (NEG) Urine Phencyclidine Screen Neg (NEG) Urine Amphetamine/Methamphetamine Neg (NEG) Urine Benzodiazepines Screen Neg (NEG) Urine Cocaine Screen Neg (NEG) Urine Cannabinoids Screen Neg (NEG) Urine Ethyl Alcohol Neg (NEG) Medications Current Medications Morphine Sulfate (Morphine Sulfate) 4 mg 1X ONCE IV Last administered on 05/16 16:36; Start 05/16/19 at 16:30; Stop 05/16/19 at 16:31; Status DC Dicyclomine HCl (Bentyl) 20 mg 1X ONCE IM Last administered on 05/16/19 16:37; Start 05/16/19 at 16:30; Stop 05/16/19 at 16:31; Status DC Famotidine (Pepcid Vial) 20 mg 1X ONCE IVP Last administered on 05/16/19 16:36; Start 05/16/19 at 16:30; Stop 05/16/19 at 16:31; Status DC Multi-Ingredient Mouthwash/Gargle (Gi Cocktail) 20 ml 1X ONCE SWSW Last administered on 05/16/19 16:36; Start 05/16/19 at 16:30; Stop 05/16/19 at 16:31 ; Status DC Ondansetron HCl (Zofran) 4 mg 1X ONCE IVP Last administered on 05/16/19 16:36; Start 05/16/19 at 16:30; Stop 05/16/19 at 16:31; Status DC Sodium Chloride 1,000 ml @ 100 mls/hr Q10H IV Last administered on 05/17/19at 04:55; Start 05/16/19 at 19:15 Ondansetron HCl (Zofran) 8 mg PRN Q8HRS PRN IVP NAUSEA/VOMITING; Start 05/16/19 at 19:15 Morphine Sulfate (Morphine Sulfate) 4 mg PRN Q2HR PRN IV PAIN; Start 05/16/19 at 21:30 Diphenhydramine HCl (Benadryl) 25 mg PRN Q6HRS PRN PO ITCHING; Start 05/16/19 at 21:30 Multi-Ingredient Mouthwash/Gargle (Gi Cocktail) 20 ml PRN QID PRN PO CHEST PAIN; Start 05/17/19 at 08:45 Oxycodone/ Acetaminophen (Percocet 5/325) 1 tab PRN Q4HRS PRN PO MODERATE TO SEVERE PAIN; Start 05/17/19 at 08:45 Pantoprazole Sodium (Protonix) 40 mg DAILYAC PO ; Start 05/17/19 at 11:30 Loperamide HCl (Imodium) 2 mg PRN Q15MIN PRN PO DIARRHEA; Start 05/17/19 at 08:45 Prochlorperazine Edisylate (Compazine) 10 mg PRN Q6HRS PRN IV NAUSEA/VOMITING; Start 05/17/19 at 08:45 Non-Formulary Medication (Dicyclomine Hcl ) 1 tab QID PO ; Start 05/17/19 at 09:00 Active Scripts Active Bactrim Ds Tablet (Sulfamethoxazole/Trimethoprim) 1 Each Tablet 1 Tab PO BID Zofran (Ondansetron Hcl) 4 Mg Tablet 1 Tab PO Q6HRS PRN Dicyclomine Hcl 20 Mg Tablet 1 Tab PO QID Vitals/I & O Vital Sign - Last 24 Hours 05/16/19 05/16/19 05/16/19 05/16/19 16:13 16:36 17:06 17:11 Temp 98.4 98.4 Pulse 83 70 Resp 24 20 17 18 B/P (MAP) 148/74 (98) 113/65 (81) Pulse Ox 97 100 97 100 O2 Delivery Room Air Room Air Room Air Room Air 05/16/19 05/16/19 05/16/19 05/16/19 19:00 19:03 19:43 23:00 Temp 98.4 97.9 98.4 97.9 Pulse 70 64 Resp 18 16 B/P (MAP) 108/67 (81) 112/69 (83) Pulse Ox 100 99 O2 Delivery Room Air Room Air Room Air 05/17/19 05/17/19 05/17/19 03:00 07:00 11:00 Temp 97.7 98.0 97.7 97.7 98.0 97.7 Pulse 72 87 72 Resp 16 18 16 B/P (MAP) 112/76 (88) 108/57 (74) 103/69 (80) Pulse Ox 100 99 98 O2 Delivery Room Air Room Air Room Air LORI CORREA MD May 17, 2019 11:38
--- NOTE | 2019-05-17 12:00 | NUR ---
SW following for discharge planning. Discussed with RN, pt is from home with , [place] speaking. Pt is self pay, not a citizen. Per Dr. Rodríguez, if pt is feeling better later this afternoon, could possibly discharge home with / self care. SW will continue to follow.
[2019-05-17] MEDS: PANTOPRAZOLE 40 MG TABLET.DR. PO SCH (12:01)
--- NOTE | 2019-05-17 13:36 | PDOC2 ---
GI CONSULT Reason For Consult: Abd pain, elev LFTs mild HPI: HPI: 38 y/o female evaluated in ER twice yesterday and admitted. Speaks Irish, translation provided by at bedside. Epigastric "burning" intermittently since last week. Initially began after eating pizza but unrelated to eating since. Comes and goes randomly, does not keep her awake during the night. No radiation to back or into chest. No n/v. Might have had similar symptoms before cholecystectomy ~5 years ago. At that time, had acid reflux and had reportedly normal EGD @ [facility]. Symptoms resolved after cholecystectomy but has had some recurrence of heartburn over the past week. No dysphagia, diarrhea, constipation, hematochezia, melena, or weight loss. No liver, pancreas, or PUD history. No regular use of NSAIDs. Feels better now - ate lunch. PMH: PMH: nephrolithiasis cholecystectomy FH: Family History: No pertinent hx (denies GI cancers) Social History: Smoke: No ALCOHOL: rare Drugs: None ROS: GEN: Denies fevers, chills, sweats HEENT: Denies blurred vision, sore throat CV: Denies chest pain RESP: Denies shortness of air, cough GI: Per HPI : Denies hematuria, dysuria ENDO: Denies weight changes NEURO: Denies confusion, dizziness MSK: Denies weakness, joint pain/swelling SKIN: Denies jaundice, pruritus Vitals: Vitals: Vital Signs Date Time Temp Pulse Resp B/P (MAP) Pulse Ox O2 Delivery O2 Flow Rate FiO2 05/17/19 11:00 97.7 72 16 103/69 (80) 98 Room Air 97.7 Labs: Labs: Laboratory Tests Test 05/16/19 16:20 05/16/19 17:00 05/17/19 05:30 White Blood Count 11.5 x10^3/uL (4.0-11.0) 7.2 x10^3/uL (4.0-11.0) Red Blood Count 4.67 x10^6/uL (3.50-5.40) 4.19 x10^6/uL (3.50-5.40) Hemoglobin 14.1 g/dL (12.0-15.5) 12.9 g/dL (12.0-15.5) Hematocrit 41.2 % (36.0-47.0) 37.5 % (36.0-47.0) Mean Corpuscular Volume 88 fL (79-100) 90 fL (79-100) Mean Corpuscular Hemoglobin 30 pg (25-35) 31 pg (25-35) Mean Corpuscular Hemoglobin Concent 34 g/dL (31-37) 34 g/dL (31-37) Red Cell Distribution Width 13.0 % (11.5-14.5) 13.3 % (11.5-14.5) Platelet Count 335 x10^3/uL (140-400) 302 x10^3/uL (140-400) Neutrophils (%) (Auto) 79 % (31-73) 63 % (31-73) Lymphocytes (%) (Auto) 16 % (24-48) 26 % (24-48) Monocytes (%) (Auto) 5 % (0-9) 7 % (0-9) Eosinophils (%) (Auto) 1 % (0-3) 4 % (0-3) Basophils (%) (Auto) 0 % (0-3) 0 % (0-3) Neutrophils # (Auto) 9.0 x10^3/uL (1.8-7.7) 4.5 x10^3/uL (1.8-7.7) Lymphocytes # (Auto) 1.8 x10^3/uL (1.0-4.8) 1.9 x10^3/uL (1.0-4.8) Monocytes # (Auto) 0.5 x10^3/uL (0.0-1.1) 0.5 x10^3/uL (0.0-1.1) Eosinophils # (Auto) 0.1 x10^3/uL (0.0-0.7) 0.3 x10^3/uL (0.0-0.7) Basophils # (Auto) 0.0 x10^3/uL (0.0-0.2) 0.0 x10^3/uL (0.0-0.2) Sodium Level 141 mmol/L (136-145) 143 mmol/L (136-145) Potassium Level 3.6 mmol/L (3.5-5.1) 3.8 mmol/L (3.5-5.1) Chloride Level 105 mmol/L (98-107) 109 mmol/L (98-107) Carbon Dioxide Level 24 mmol/L (21-32) 26 mmol/L (21-32) Anion Gap 12 (6-14) 8 (6-14) Blood Urea Nitrogen 8 mg/dL (7-20) 7 mg/dL (7-20) Creatinine 0.7 mg/dL (0.6-1.0) 0.8 mg/dL (0.6-1.0) Estimated GFR (Cockcroft-Gault) 94.2 80.7 BUN/Creatinine Ratio 11 (6-20) 9 (6-20) Glucose Level 117 mg/dL (70-99) 91 mg/dL (70-99) Calcium Level 9.0 mg/dL (8.5-10.1) 8.1 mg/dL (8.5-10.1) Total Bilirubin 0.5 mg/dL (0.2-1.0) 0.4 mg/dL (0.2-1.0) Aspartate Amino Transf (AST/SGOT) 76 U/L (15-37) 64 U/L (15-37) Alanine Aminotransferase (ALT/SGPT) 69 U/L (14-59) 86 U/L (14-59) Alkaline Phosphatase 161 U/L (46-116) 143 U/L (46-116) Total Protein 8.5 g/dL (6.4-8.2) 7.1 g/dL (6.4-8.2) Albumin 3.8 g/dL (3.4-5.0) 3.0 g/dL (3.4-5.0) Albumin/Globulin Ratio 0.8 (1.0-1.7) 0.7 (1.0-1.7) Lipase 245 U/L (73-393) Urine Opiates Screen Pos (NEG) Urine Methadone Screen Neg (NEG) Urine Barbiturates Neg (NEG) Urine Phencyclidine Screen Neg (NEG) Urine Amphetamine/Methamphetamine Neg (NEG) Urine Benzodiazepines Screen Neg (NEG) Urine Cocaine Screen Neg (NEG) Urine Cannabinoids Screen Neg (NEG) Urine Ethyl Alcohol Neg (NEG) Allergies: Coded Allergies: No Known Drug Allergies (Unverified , 09/19/14) Medications: Current Medications Medications (Trade) Dose Ordered Sig/Crysatl Route PRN Reason Start Time Stop Time Status Last Admin Dose Admin Morphine Sulfate (Morphine Sulfate) 4 mg 1X ONCE IV 05/16/19 16:30 05/16/19 16:31 DC 05/16/19 16:36 Dicyclomine HCl (Bentyl) 20 mg 1X ONCE IM 05/16/19 16:30 05/16/19 16:31 DC 05/16/19 16:37 Famotidine (Pepcid Vial) 20 mg 1X ONCE IVP 05/16/19 16:30 05/16/19 16:31 DC 05/16/19 16:36 Multi-Ingredient Mouthwash/Gargle (Gi Cocktail) 20 ml 1X ONCE SWSW 05/16/19 16:30 05/16/19 16:31 DC 05/16/19 16:36 Ondansetron HCl (Zofran) 4 mg 1X ONCE IVP 05/16/19 16:30 05/16/19 16:31 DC 05/16/19 16:36 Sodium Chloride 1,000 ml @ 100 mls/hr Q10H IV 05/16/19 19:15 05/17/19 04:55 Pantoprazole Sodium (Protonix) 40 mg DAILYAC PO 05/17/19 11:30 05/17/19 12:01 Imaging: Imaging: CT A/P 05/16 FINDINGS: Minimal bibasilar lung atelectasis. No evidence of free air identified in the abdomen. The liver, spleen, adrenals grossly appears unremarkable. Cholecystectomy clips identified. The stomach is mildly distended. Faint questionable fat stranding identified about the head of the pancreas probably motion artifact and less likely pancreatitis. The small bowel demonstrates minimal fluid distended bowel loops in the mid abdomen. The visualized appendix grossly appears unremarkable. Feces and gas noted in the colon. Urinary bladder is mildly distended. Punctate 1 mm calculus right kidney. No evidence of hydronephrosis. Small fat-containing umbilical hernia. No evidence of lytic bony destructive le diane. IMPRESSION: 1. Mild fluid distended small bowel loops identified in the mid abdomen, nonspecific could be mild enteritis or partial small bowel obstruction. 2. Minimal fat stranding identified about the pancreas probably due to motion artifact and less likely pancreatitis. Correlate with lab values. 3. 1 mm calculus right kidney. PE: GEN: NAD HEENT: Atraumatic, PERRL LUNGS: CTAB HEART: RRR ABD: NABS, S/ND/NT EXTREMITY: No edema SKIN: No rashes, no jaundice NEURO/PSYCH: A & O 3 A/P: A/P: Epigastric pain Acid reflux - occurred during /prior to cholecystectomy, recurred last week Abnormal LFTs Abnormal CT - mild fluid distended small bowel loops identified in the mid abdomen, minimal fat stranding about the pancreas (likely motion artifact) S/p cholecystectomy -- Check US, consider MRCP. Agree w/ PPI. SEBASTIAN SHRESTHA May 17, 2019 13:36
[2019-05-17 15:00] VITALS: BP 117/72
--- NOTE | 2019-05-17 15:05 | RAD ---
EXAM: Abdomen sonogram. HISTORY: Pain and elevated liver function laboratory values. TECHNIQUE: Sonographic imaging of the abdomen was performed. COMPARISON: 05/16/2019. FINDINGS: The liver is normal in size. No focal hepatic lesion is seen. The gallbladder is surgically absent. The common bile duct is normal in caliber. The kidneys, pancreas, spleen, and visualized portions the aorta and inferior cava are unremarkable. IMPRESSION: 1. Cholecystectomy. 2. Otherwise, unremarkable abdomen sonogram. Electronically signed by: Francheska Kidd MD (05/17/2019 3:02 PM) [place] [id number]
--- NOTE | 2019-05-17 17:30 | NUR ---
Pt will stay tonight as inpatient. GI soft diet taken at dinner and pt did have some discomfort. No nausea or vomiting. Adb US done earlier. at bedside most of the day. Pt is on her menses. IV fluids infusing. VSS. Ambulates easily to BR
[2019-05-17 19:15] VITALS: BP 114/69
[2019-05-17] MEDS: DICYCLOMINE HCL 10 MG CAPSULE PO SCH (22:03)
[2019-05-17 22:53] VITALS: BP 120/76
[2019-05-18] MEDS: IV NORMAL SALINE 1000ML BAG 1,000 ML IV SCH ×2 (00:51→11:15)
[2019-05-18 03:15] VITALS: BP 112/68
[2019-05-18 05:45] LABS: ALBUMIN 3.1 g/dL (3.4-5.0); ALBUMIN/GLOBULIN RATIO 0.8 (1.0-1.7); CALCIUM 8.1 mg/dL (8.5-10.1); CREATININE 0.9 mg/dL (0.6-1.0); GFR 70.5; POTASSIUM 3.7 mmol/L (3.5-5.1); TOTAL BILIRUBIN 0.2 mg/dL (0.2-1.0); TOTAL PROTEIN 7.2 g/dL (6.4-8.2)
[2019-05-18 07:00] VITALS: BP 111/72
[2019-05-18] MEDS ORDERED: PANT40TA77 PO (07:40)
--- NOTE | 2019-05-18 09:59 | PDOC ---
PROGRESS NOTES Chief Complaint Chief Complaint AGE vs partial SBO TRAnsaminitis mild, resolved History of Present Illness History of Present Illness better! US neg GI has ordered mrcp - i discussed with over the phone and he translated for me IF neg MRCP can go home today - devonte Ochoa COnt home bentyl, zofram,. bactrim I added PPI on chart rx PLAN: HOme today of MRCP neg - hx terri Apprecitae GI LFTS down to normal Vitals Vitals Vital Signs Date Time Temp Pulse Resp B/P (MAP) Pulse Ox O2 Delivery O2 Flow Rate FiO2 05/18/19 07:30 Room Air 05/18/19 07:00 98.2 66 16 111/72 (85) 98 98.2 Physical Exam General: Alert, Oriented X3, No acute distress Heart: Regular rate, Normal S1, Normal S2 Lungs: Clear Abdomen: Soft (tender, sounds normla), No tenderness Extremities: No clubbing, No cyanosis, No edema, Normal pulses Skin: No rashes, No significant lesion Labs LABS Laboratory Tests Test 05/18/19 03:50 Sodium Level 143 mmol/L (136-145) Potassium Level 3.7 mmol/L (3.5-5.1) Chloride Level 108 mmol/L (98-107) Carbon Dioxide Level 25 mmol/L (21-32) Anion Gap 10 (6-14) Blood Urea Nitrogen 9 mg/dL (7-20) Creatinine 0.9 mg/dL (0.6-1.0) Estimated GFR (Cockcroft-Gault) 70.5 BUN/Creatinine Ratio 10 (6-20) Glucose Level 92 mg/dL (70-99) Calcium Level 8.1 mg/dL (8.5-10.1) Total Bilirubin 0.2 mg/dL (0.2-1.0) Aspartate Amino Transf (AST/SGOT) 27 U/L (15-37) Alanine Aminotransferase (ALT/SGPT) 57 U/L (14-59) Alkaline Phosphatase 121 U/L (46-116) Total Protein 7.2 g/dL (6.4-8.2) Albumin 3.1 g/dL (3.4-5.0) Albumin/Globulin Ratio 0.8 (1.0-1.7) Review of Systems Review of Systems neg 14 pt Assessment and Plan Assessmemt and Plan Problems Medical Problems: (1) Abdominal pain Status: Acute (2) Nausea Status: Acute (3) Viral enteritis Status: Acute Comment Review of Relevant I have reviewed the following items victorina (where applicable) has been applied. Labs Laboratory Tests Test 05/16/19 16:20 05/16/19 17:00 05/17/19 05:30 05/18/19 03:50 White Blood Count 11.5 x10^3/uL (4.0-11.0) 7.2 x10^3/uL (4.0-11.0) Red Blood Count 4.67 x10^6/uL (3.50-5.40) 4.19 x10^6/uL (3.50-5.40) Hemoglobin 14.1 g/dL (12.0-15.5) 12.9 g/dL (12.0-15.5) Hematocrit 41.2 % (36.0-47.0) 37.5 % (36.0-47.0) Mean Corpuscular Volume 88 fL (79-100) 90 fL (79-100) Mean Corpuscular Hemoglobin 30 pg (25-35) 31 pg (25-35) Mean Corpuscular Hemoglobin Concent 34 g/dL (31-37) 34 g/dL (31-37) Red Cell Distribution Width 13.0 % (11.5-14.5) 13.3 % (11.5-14.5) Platelet Count 335 x10^3/uL (140-400) 302 x10^3/uL (140-400) Neutrophils (%) (Auto) 79 % (31-73) 63 % (31-73) Lymphocytes (%) (Auto) 16 % (24-48) 26 % (24-48) Monocytes (%) (Auto) 5 % (0-9) 7 % (0-9) Eosinophils (%) (Auto) 1 % (0-3) 4 % (0-3) Basophils (%) (Auto) 0 % (0-3) 0 % (0-3) Neutrophils # (Auto) 9.0 x10^3/uL (1.8-7.7) 4.5 x10^3/uL (1.8-7.7) Lymphocytes # (Auto) 1.8 x10^3/uL (1.0-4.8) 1.9 x10^3/uL (1.0-4.8) Monocytes # (Auto) 0.5 x10^3/uL (0.0-1.1) 0.5 x10^3/uL (0.0-1.1) Eosinophils # (Auto) 0.1 x10^3/uL (0.0-0.7) 0.3 x10^3/uL (0.0-0.7) Basophils # (Auto) 0.0 x10^3/uL (0.0-0.2) 0.0 x10^3/uL (0.0-0.2) Sodium Level 141 mmol/L (136-145) 143 mmol/L (136-145) 143 mmol/L (136-145) Potassium Level 3.6 mmol/L (3.5-5.1) 3.8 mmol/L (3.5-5.1) 3.7 mmol/L (3.5-5.1) Chloride Level 105 mmol/L (98-107) 109 mmol/L (98-107) 108 mmol/L (98-107) Carbon Dioxide Level 24 mmol/L (21-32) 26 mmol/L (21-32) 25 mmol/L (21-32) Anion Gap 12 (6-14) 8 (6-14) 10 (6-14) Blood Urea Nitrogen 8 mg/dL (7-20) 7 mg/dL (7-20) 9 mg/dL (7-20) Creatinine 0.7 mg/dL (0.6-1.0) 0.8 mg/dL (0.6-1.0) 0.9 mg/dL (0.6-1.0) Estimated GFR (Cockcroft-Gault) 94.2 80.7 70.5 BUN/Creatinine Ratio 11 (6-20) 9 (6-20) 10 (6-20) Glucose Level 117 mg/dL (70-99) 91 mg/dL (70-99) 92 mg/dL (70-99) Calcium Level 9.0 mg/dL (8.5-10.1) 8.1 mg/dL (8.5-10.1) 8.1 mg/dL (8.5-10.1) Total Bilirubin 0.5 mg/dL (0.2-1.0) 0.4 mg/dL (0.2-1.0) 0.2 mg/dL (0.2-1.0) Aspartate Amino Transf (AST/SGOT) 76 U/L (15-37) 64 U/L (15-37) 27 U/L (15-37) Alanine Aminotransferase (ALT/SGPT) 69 U/L (14-59) 86 U/L (14-59) 57 U/L (14-59) Alkaline Phosphatase 161 U/L (46-116) 143 U/L (46-116) 121 U/L (46-116) Total Protein 8.5 g/dL (6.4-8.2) 7.1 g/dL (6.4-8.2) 7.2 g/dL (6.4-8.2) Albumin 3.8 g/dL (3.4-5.0) 3.0 g/dL (3.4-5.0) 3.1 g/dL (3.4-5.0) Albumin/Globulin Ratio 0.8 (1.0-1.7) 0.7 (1.0-1.7) 0.8 (1.0-1.7) Lipase 245 U/L (73-393) Urine Opiates Screen Pos (NEG) Urine Methadone Screen Neg (NEG) Urine Barbiturates Neg (NEG) Urine Phencyclidine Screen Neg (NEG) Urine Amphetamine/Methamphetamine Neg (NEG) Urine Benzodiazepines Screen Neg (NEG) Urine Cocaine Screen Neg (NEG) Urine Cannabinoids Screen Neg (NEG) Urine Ethyl Alcohol Neg (NEG) Laboratory Tests Test 05/18/19 03:50 Sodium Level 143 mmol/L (136-145) Potassium Level 3.7 mmol/L (3.5-5.1) Chloride Level 108 mmol/L (98-107) Carbon Dioxide Level 25 mmol/L (21-32) Anion Gap 10 (6-14) Blood Urea Nitrogen 9 mg/dL (7-20) Creatinine 0.9 mg/dL (0.6-1.0) Estimated GFR (Cockcroft-Gault) 70.5 BUN/Creatinine Ratio 10 (6-20) Glucose Level 92 mg/dL (70-99) Calcium Level 8.1 mg/dL (8.5-10.1) Total Bilirubin 0.2 mg/dL (0.2-1.0) Aspartate Amino Transf (AST/SGOT) 27 U/L (15-37) Alanine Aminotransferase (ALT/SGPT) 57 U/L (14-59) Alkaline Phosphatase 121 U/L (46-116) Total Protein 7.2 g/dL (6.4-8.2) Albumin 3.1 g/dL (3.4-5.0) Albumin/Globulin Ratio 0.8 (1.0-1.7) Medications Current Medications Morphine Sulfate (Morphine Sulfate) 4 mg 1X ONCE IV Last administered on 05/16/19 16:36; Start 05/16/19 at 16:30; Stop 05/16/19 at 16:31; Status DC Dicyclomine HCl (Bentyl) 20 mg 1X ONCE IM Last administered on 05/16/19at 16:37; Start 05/16/19 at 16:30; Stop 05/16/19 at 16:31; Status DC Famotidine (Pepcid Vial) 20 mg 1X ONCE IVP Last administered on 05/16/19at 16:36; Start 05/16/19 at 16:30; Stop 05/16/19 at 16:31; Status DC Multi-Ingredient Mouthwash/Gargle (Gi Cocktail) 20 ml 1X ONCE SWSW Last administered on 05/16/19at 16:36; Start 05/16/19 at 16:30; Stop 05/16/19 at 16:31; Status DC Ondansetron HCl (Zofran) 4 mg 1X ONCE IVP Last administered on 05/16/19at 16:36; Start 05/16/19 at 16:30; Stop 05/16/19 at 16:31; Status DC Sodium Chloride 1,000 ml @ 100 mls/hr Q10H IV Last administered on 05/18/19at 00:51; Start 05/16/19 at 19:15 Ondansetron HCl (Zofran) 8 mg PRN Q8HRS PRN IVP NAUSEA/VOMITING, 1ST CHOICE; Start 05/16/19 at 19:15 Morphine Sulfate (Morphine Sulfate) 4 mg PRN Q2HR PRN IV PAIN; Start 05/16/19 at 21:30 Diphenhydramine HCl (Benadryl) 25 mg PRN Q6HRS PRN PO ITCHING; Start 05/16/19 at 21:30 Multi-Ingredient Mouthwash/Gargle (Gi Cocktail) 20 ml PRN QID PRN PO CHEST PAIN; Start 05/17/19 at 08:45 Oxycodone/ Acetaminophen (Percocet 5/325) 1 tab PRN Q4HRS PRN PO MODERATE TO SEVERE PAIN Last administered on 05/17/19at 14:37; Start 05/17/19 at 08:45 Pantoprazole Sodium (Protonix) 40 mg DAILYAC PO Last administered on 05/17/19at 12:01; Start 05/17/19 at 11:30 Loperamide HCl (Imodium) 2 mg PRN Q15MIN PRN PO DIARRHEA; Start 05/17/19 at 08:45 Prochlorperazine Edisylate (Compazine) 10 mg PRN Q6HRS PRN IV NAUSEA/VOMITING, 2ND CHOICE; Start 05/17/19 at 08:45 Non-Formulary Medication (Dicyclomine Hcl ) 1 tab QID PO ; Start 05/17/19 at 09:00; Stop 05/17/19 at 18:46; Status DC Dicyclomine HCl (Bentyl) 20 mg QID PO Last administered on 05/17/19at 22:03; Start 05/17/19 at 18:46 Active Scripts Active Pantoprazole Sodium (Pantoprazole Sodium) 40 Mg Tablet.dr 40 Mg PO DAILYAC Zofran (Ondansetron Hcl) 4 Mg Tablet 1 Tab PO Q6HRS PRN Dicyclomine Hcl 20 Mg Tablet 1 Tab PO QID Vitals/I & O Vital Sign - Last 24 Hours 05/17/19 05/17/19 05/17/19 05/17/19 11:00 14:37 15:00 15:37 Temp 97.7 98.2 97.7 98.2 Pulse 72 70 Resp 16 16 16 16 B/P (MAP) 103/69 (80) 117/72 (87) Pulse Ox 98 97 O2 Delivery Room Air Room Air Room Air Room Air 05/17/19 05/17/19 05/17/19 05/18/19 19:15 20:10 22:53 03:15 Temp 98.1 97.8 98.0 98.1 97.8 98.0 Pulse 70 62 66 Resp 18 16 18 B/P (MAP) 114/69 (84) 120/76 (91) 112/68 (83) Pulse Ox 97 98 100 O2 Delivery Room Air Room Air Room Air Room Air 05/18/19 05/18/19 07:00 07:30 Temp 98.2 98.2 Pulse 66 Resp 16 B/P (MAP) 111/72 (85) Pulse Ox 98 O2 Delivery Room Air Room Air Intake and Output 05/17/19 05/17/19 05/18/19 15:00 23:00 07:00 Intake Total 1590 ml 560 ml 1000 ml Balance 1590 ml 560 ml 1000 ml LORI CORREA MD May 18, 2019 09:59
--- NOTE | 2019-05-18 10:01 | PDOC3 ---
Discharge Summary Visit Information Date of Admission: May 16, 2019 Date of Discharge: May 18, 2019 Admitting Diagnosis Comment: AGe TRamsaminitis resolved HX cholecystectomy Final Diagnosis Problems Medical Problems: (1) Abdominal pain Status: Acute (2) Nausea Status: Acute (3) Viral enteritis Status: Acute Brief Hospital Course Allergies Allergies Coded Allergies Type Severity Reaction Last Updated Verified No Known Drug Allergies 09/19/14 No Vital Signs Vital Signs Date Time Temp Pulse Resp B/P (MAP) Pulse Ox O2 Delivery O2 Flow Rate FiO2 05/18/19 07:30 Room Air 05/18/19 07:00 98.2 66 16 111/72 (85) 98 98.2 Lab Results Laboratory Tests Test 05/16/19 16:20 05/16/19 17:00 05/17/19 05:30 05/18/19 03:50 White Blood Count 11.5 x10^3/uL (4.0-11.0) 7.2 x10^3/uL (4.0-11.0) Red Blood Count 4.67 x10^6/uL (3.50-5.40) 4.19 x10^6/uL (3.50-5.40) Hemoglobin 14.1 g/dL (12.0-15.5) 12.9 g/dL (12.0-15.5) Hematocrit 41.2 % (36.0-47.0) 37.5 % (36.0-47.0) Mean Corpuscular Volume 88 fL (79-100) 90 fL (79-100) Mean Corpuscular Hemoglobin 30 pg (25-35) 31 pg (25-35) Mean Corpuscular Hemoglobin Concent 34 g/dL (31-37) 34 g/dL (31-37) Red Cell Distribution Width 13.0 % (11.5-14.5) 13.3 % (11.5-14.5) Platelet Count 335 x10^3/uL (140-400) 302 x10^3/uL (140-400) Neutrophils (%) (Auto) 79 % (31-73) 63 % (31-73) Lymphocytes (%) (Auto) 16 % (24-48) 26 % (24-48) Monocytes (%) (Auto) 5 % (0-9) 7 % (0-9) Eosinophils (%) (Auto) 1 % (0-3) 4 % (0-3) Basophils (%) (Auto) 0 % (0-3) 0 % (0-3) Neutrophils # (Auto) 9.0 x10^3/uL (1.8-7.7) 4.5 x10^3/uL (1.8-7.7) Lymphocytes # (Auto) 1.8 x10^3/uL (1.0-4.8) 1.9 x10^3/uL (1.0-4.8) Monocytes # (Auto) 0.5 x10^3/uL (0.0-1.1) 0.5 x10^3/uL (0.0-1.1) Eosinophils # (Auto) 0.1 x10^3/uL (0.0-0.7) 0.3 x10^3/uL (0.0-0.7) Basophils # (Auto) 0.0 x10^3/uL (0.0-0.2) 0.0 x10^3/uL (0.0-0.2) Sodium Level 141 mmol/L (136-145) 143 mmol/L (136-145) 143 mmol/L (136-145) Potassium Level 3.6 mmol/L (3.5-5.1) 3.8 mmol/L (3.5-5.1) 3.7 mmol/L (3.5-5.1) Chloride Level 105 mmol/L (98-107) 109 mmol/L (98-107) 108 mmol/L (98-107) Carbon Dioxide Level 24 mmol/L (21-32) 26 mmol/L (21-32) 25 mmol/L (21-32) Anion Gap 12 (6-14) 8 (6-14) 10 (6-14) Blood Urea Nitrogen 8 mg/dL (7-20) 7 mg/dL (7-20) 9 mg/dL (7-20) Creatinine 0.7 mg/dL (0.6-1.0) 0.8 mg/dL (0.6-1.0) 0.9 mg/dL (0.6-1.0) Estimated GFR (Cockcroft-Gault) 94.2 80.7 70.5 BUN/Creatinine Ratio 11 (6-20) 9 (6-20) 10 (6-20) Glucose Level 117 mg/dL (70-99) 91 mg/dL (70-99) 92 mg/dL (70-99) Calcium Level 9.0 mg/dL (8.5-10.1) 8.1 mg/dL (8.5-10.1) 8.1 mg/dL (8.5-10.1) Total Bilirubin 0.5 mg/dL (0.2-1.0) 0.4 mg/dL (0.2-1.0) 0.2 mg/dL (0.2-1.0) Aspartate Amino Transf (AST/SGOT) 76 U/L (15-37) 64 U/L (15-37) 27 U/L (15-37) Alanine Aminotransferase (ALT/SGPT) 69 U/L (14-59) 86 U/L (14-59) 57 U/L (14-59) Alkaline Phosphatase 161 U/L (46-116) 143 U/L (46-116) 121 U/L (46-116) Total Protein 8.5 g/dL (6.4-8.2) 7.1 g/dL (6.4-8.2) 7.2 g/dL (6.4-8.2) Albumin 3.8 g/dL (3.4-5.0) 3.0 g/dL (3.4-5.0) 3.1 g/dL (3.4-5.0) Albumin/Globulin Ratio 0.8 (1.0-1.7) 0.7 (1.0-1.7) 0.8 (1.0-1.7) Lipase 245 U/L (73-393) Urine Opiates Screen Pos (NEG) Urine Methadone Screen Neg (NEG) Urine Barbiturates Neg (NEG) Urine Phencyclidine Screen Neg (NEG) Urine Amphetamine/Methamphetamine Neg (NEG) Urine Benzodiazepines Screen Neg (NEG) Urine Cocaine Screen Neg (NEG) Urine Cannabinoids Screen Neg (NEG) Urine Ethyl Alcohol Neg (NEG) Laboratory Tests Test 05/18/19 03:50 Sodium Level 143 mmol/L (136-145) Potassium Level 3.7 mmol/L (3.5-5.1) Chloride Level 108 mmol/L (98-107) Carbon Dioxide Level 25 mmol/L (21-32) Anion Gap 10 (6-14) Blood Urea Nitrogen 9 mg/dL (7-20) Creatinine 0.9 mg/dL (0.6-1.0) Estimated GFR (Cockcroft-Gault) 70.5 BUN/Creatinine Ratio 10 (6-20) Glucose Level 92 mg/dL (70-99) Calcium Level 8.1 mg/dL (8.5-10.1) Total Bilirubin 0.2 mg/dL (0.2-1.0) Aspartate Amino Transf (AST/SGOT) 27 U/L (15-37) Alanine Aminotransferase (ALT/SGPT) 57 U/L (14-59) Alkaline Phosphatase 121 U/L (46-116) Total Protein 7.2 g/dL (6.4-8.2) Albumin 3.1 g/dL (3.4-5.0) Albumin/Globulin Ratio 0.8 (1.0-1.7) Brief Hospital Course Ms. Simeon is a 38 old uzbek speaking only female, AGE sxs, but mild transamiitis. Distant hx terri, GI consulted, US neg but we are waiting for mrcp, IF mrcp neg can go home on PPI< She has bentyl, zofran, bactrim from past ER/urgent care visit,.I said ok to cont prn DIscussed with at phone who translated for me . 2 notes today COnsults: GI PRoc; US and mrcp Discharge Information Condition at Discharge: Improved, Stable Disposition/Orders: D/C to Home Scheduled Dicyclomine Hcl (Dicyclomine Hcl) 20 Mg Tablet, 1 TAB PO QID, #20 Prescribed by: JESSIE VILCHIS MD on 05/16/196 Last Action: Converted on 05/17/19 0843 by LORI CORREA Pantoprazole Sodium (Pantoprazole Sodium ) 40 Mg Tablet.dr, 40 MG PO DAILYAC for prophy, #60 Prescribed by: LORI CORREA on 05/18/19 0740 Scheduled PRN Ondansetron Hcl (Zofran) 4 Mg Tablet, 1 TAB PO Q6HRS PRN for NAUSEA/VOMITING, #20 Prescribed by: JESSIE VILCHIS MD on 05/16/19 1226 Last Action: HELD on 05/17/19842 by LORI CORREA Discontinued Medications Sulfamethoxazole/Trimethoprim (Bactrim Ds Tablet) 1 Each Tablet, 1 TAB PO BID, #6 Prescribed by: JESSIE VILCHIS MD on 05/16/19 1226 Last Action: HELD on 05/17/19842 by LORI ELKINS MD May 18, 2019 10:01
[2019-05-18 10:46] VITALS: BP 110/72
[2019-05-18] MEDS: DICYCLOMINE HCL 10 MG CAPSULE PO SCH ×2 (10:58→14:06)
[2019-05-18] MEDS: PANTOPRAZOLE 40 MG TABLET.DR. PO SCH (10:58)
--- NOTE | 2019-05-18 11:32 | PDOC ---
Subjective: Subjective: Feels better, no pain, tolerating PO. Objective: Vital Signs: Vital Signs Date Time Temp Pulse Resp B/P (MAP) Pulse Ox O2 Delivery O2 Flow Rate FiO2 05/18/19 10:46 98.2 77 18 110/72 (85) 96 Room Air 98.2 Labs: Laboratory Tests Test 05/18/19 03:50 Sodium Level 143 mmol/L Potassium Level 3.7 mmol/L Chloride Level 108 mmol/L Carbon Dioxide Level 25 mmol/L Anion Gap 10 Blood Urea Nitrogen 9 mg/dL Creatinine 0.9 mg/dL Estimated GFR (Cockcroft-Gault) 70.5 BUN/Creatinine Ratio 10 Glucose Level 92 mg/dL Calcium Level 8.1 mg/dL Total Bilirubin 0.2 mg/dL Aspartate Amino Transf (AST/SGOT) 27 U/L Alanine Aminotransferase (ALT/SGPT) 57 U/L Alkaline Phosphatase 121 U/L Total Protein 7.2 g/dL Albumin 3.1 g/dL Albumin/Globulin Ratio 0.8 Imaging: MRCP 05/18 pending Abd US 05/17 IMPRESSION: 1. Cholecystectomy. 2. Otherwise, unremarkable abdomen sonogram. PE: GEN: NAD LUNGS: CTAB HEART: RRR ABD: NABS, S/ND/NT NEURO/PSYCH: A & O 3 A/P: Epigastric pain (better), elevated LFTs (better), s/p terri -- Awaiting MRCP. Note has DC orders. SEBASTIAN SHRESTHA May 18, 2019 11:32
--- NOTE | 2019-05-18 12:06 | NUR ---
SW following for discharge planning. Chart reviewed, discussed with RN. Pt okay to discharge if MRCP is negative and cleared by GI. RN advised no SW needs. SW will continue to follow should any discharge needs arise.
[2019-05-18 15:00] VITALS: BP 105/70
--- NOTE | 2019-05-18 16:19 | RAD ---
EXAM: MRI ABDOMEN WITHOUT CONTRAST. HISTORY: Epigastric pain, elevated liver enzymes, status post cholecystectomy. TECHNIQUE: MRI of the abdomen was performed without intravenous contrast. Three-dimensional reconstructions of the biliary tree were also performed. COMPARISON: 05/16/2019. FINDINGS: Liver: There is no significant steatosis. There are no suspicious hepatic lesions. Biliary tree: The gallbladder is surgically absent. There is a linear filling defect within the distal common duct which may be a flow artifact. Distally the common duct measures 6-7 mm. There is a mild stenosis within the midportion of the common duct. There are no suspicious pancreatic parenchymal lesions without contrast. The pancreatic duct is not dilated. Other findings: The kidneys, adrenal glands and spleen are unremarkable. There is trace bilateral pleural fluid. IMPRESSION: 1. A linear filling defect within the distal common duct is most likely a flow artifact rather than choledocholithiasis. There is a mild stenosis of the mid common duct without a surrounding lesion. The common duct is at the upper limits of normal, status post cholecystectomy. Electronically signed by: Karina Yo MD (05/18/2019 4:16 PM) [facility]
== END 2019-05-18 18:05 | disposition home or self-care (01) ==
LOC: ER 16:04 → INTOOBSV 16:40 → 4 NORTH 16:40
PROVIDERS: ADMIT Internal Medicine; ATTEND Internal Medicine
DX: A08.4 Viral intestinal infection, unspecified (principal); R11.2 Nausea with vomiting, unspecified
CPT/HCPCS: 36415; 74181; 76700; 80053; 80307; 83690; 85025; 96361; 96372; 96374; 96375; 99284; G0378; J0500; J2270; J2405; J3490; J7030; G0379; 99285-25